=== PATIENT | female | born 1980 | race Caucasian/White ===

== ENCOUNTER 2016-03-07 17:54 | Emergency (ER) | payer OTHER, MEDICARE ==
[~2016-03-07] VITALS: Ht 165.1 cm; Wt 63.0 kg
[~2016-03-07 17:54] MED LIST: CATAPRES 0.1MG0.1 M1 PO; FIORICET W/CODE1 CAP PO; PERCOCET 325 MG1 TA2 PO; REGLAN10 MG PO; TRAMADOL50 MG PO; TYLENOL #31 TAB PO; ZOFRAN4 M1 PO
[2016-03-07 17:57] VITALS: BP 112/62
--- NOTE | 2016-03-07 18:22 | ED SKIN/ALLERGY COMPLAINT ---
History of Present Illness General Chief Complaint: Skin Rash/ Abcess Stated Complaint: BIBA FOR RASH X 2 DAYS Source: patient Exam Limitations: no limitations Vital Signs & Intake/Output Vital Signs & Intake/Output Vital Signs Date Time Temp Pulse Resp B/P Pulse O2 O2 Flow FiO2 Ox Delivery Rate 03/07 1757 98.1 60 20 112/62 97 Room Air Allergies Coded Allergies: NO KNOWN ALLERGIES (08/31/12) Reconcile Medications Apap/Butalbital/Caff/Codeine (Fioricet W/Codeine 325 MG-50 MG-40 MG-30 MG) 1 CAP CAP 1-2 TAB PO Q6P PRN PAIN Clonidine (Catapres 0.1MG Tab (ER)) 0.1 MG TAB 1 TAB PO BID PRN ANXIETY METOCLOPRAMIDE HCL (Reglan) 10 MG TAB 1 TAB PO Q8P PRN NAUSEA Ondansetron (Zofran Odt) 4 MG ODT 1 TAB PO Q6HR PRN NAUSEA OXYCODONE HCL/ACETAMINOPHEN (Percocet 5-325 MG Tablet) 325 MG/5 MG TAB 1-2 TAB PO Q4-6 PRN PRN PAIN TRAMADOL HCL (Tramadol) 50 MG TAB 1 TAB PO Q4-6H PRN PAIN Triamcinolone Acetonide 0.5 % CREAM..G. 1 IZABELA TOP BID RASH apply to affected area(s) X 2 WEEKS Tylenol With Codeine (Tylenol With Codeine #3 Tablet) 1 TAB TAB 1 TAB PO Q6HR PRN PAIN Triage Note: GENERALIZED RASH INCREASING OVER 3-4 DAYS Triage Nurses Notes Reviewed? yes : No Patient currently breastfeeds: No HPI: 35-year-old female with diffuse red rash, concentrated mostly around the trunk but also noted on the upper extremities and proximal lower extremities. She states some areas are slightly itchy. There is no pain. She has had a mild flulike illness recently with malaise and headaches and states that she has been under a lot of stress due to her grandmother being ill with cancer. There is been no treatment thus far. There are no modifying factors. The rash has been going on for 2 days. It is not on her head or neck or face. Past History Travel History Traveled to [place] past 21 day No Medical History Any Pertinent Medical History? see below for history Neurological: migraine, FIBROMYALGIA EENT: NONE Cardiovascular: NONE Respiratory: NONE Gastrointestinal: NONE Hepatic: NONE Renal: NONE Musculoskeletal: disk herniation Psychiatric: anxiety Blood Disorders: NONE Cancer(s): NONE Tetanus Vaccine: 02/20/15 Surgical History Surgical History: Psychosocial History What is your primary language Prydeinig Tobacco Use: Never used ETOH Use: denies use Illicit Drug Use: denies illicit drug use, marijuana (MEDICAL) Family History Hx Contributory? No Review of Systems Review of Systems Constitutional: Reports: see HPI. EENTM: Reports: no symptoms. Respiratory: Reports: no symptoms. Cardiovascular: Reports: no symptoms. GI: Reports: no symptoms. Genitourinary: Reports: no symptoms. Musculoskeletal: Reports: no symptoms. Neurological/Psychological: Reports: no symptoms. Hematologic/Endocrine: Reports: no symptoms. Immunologic/Allergic: Reports: no symptoms. All Other Systems: Reviewed and Negative Physical Exam Physical Exam General Appearance: well developed/nourished, mild distress Head: atraumatic Eyes: Bilateral: PERRL, EOMI. Ears, Nose, Throat: normal pharynx, normal ENT inspection, hearing grossly normal Neck: normal inspection, supple Respiratory: normal breath sounds Cardiovascular: regular rate/rhythm Gastrointestinal: soft, non-tender Back: normal inspection Extremities: normal inspection, normal range of motion, no edema Neurologic/Psych: awake, alert, oriented x 3, normal mood/affect Lymphatic: no anterior cervical natividad Comments: Diffuse papular rash, multiple oval salmon-colored lesions approximately 1 cm to 2 cm in size noted throughout the trunk and mildly to the upper extremities. Examination of the back reveals a much larger, likely herald patch to the mid back region. Rash is nontender. Progress Differential Diagnosis: abscess/cellulitis, allergic reaction, anaphylaxis, angioedema, asthma, contact dermatitis, drug reaction, erythema multiforme, lyme disease, meningitis/sepsis, piyriasis rosea, RMSF, scarlet fever, shingles, syphilis/gonococcemia, toxic shock syndrome, urticaria Plan of Care: Orders Procedure Date/time Status CHLAMYDIA-GC DNA PROBE 03/07 1818 Active Microbiology 03/07 1830 URINE ROUT: GC DNA Probe - RECD 03/07 1830 URINE ROUT: Chlamydia DNA Probe (ANITHA) - RECD Comments: Rash most consistent with pityriasis, discussed with patient that there is no specific treatment for this and it resolves on its own but it may take several weeks. She is given prescription for triamcinolone cream to place on areas where it is itchy. The patient has expressed concerns to me that her boyfriend may be cheating on her, she would like an STD test. She has normal vaginal itching without any discharge or abnormal vaginal bleeding, she has no pelvic pain. We will perform a urine GC chlamydia test. She will be notified of positive test result the next few days Departure Departure Disposition: HOME OR SELF CARE Condition: Stable Clinical Impression Primary Impression: Pityriasis rosea Referrals: PATIENT HAS NO PRIMARY CARE DR (PCP/Family) Additional Instructions: Use the steroid cream only on the areas of rash that are itchy. The rash, last from 6-8 weeks. Return if there is worsening rash or any pain with the rash over the next few days. We will call you if your urine test comes back positive Departure Forms: Customer Survey General Discharge Information Prescriptions: Current Visit Scripts Triamcinolone Acetonide 1 IZABELA TOP BID #30 GM Ref 1 apply to affected area(s) X 2 WEEKS
[2016-03-07] MEDS ORDERED: TRIAMCINOLONE A15 G2 TOP (18:26)
== END 2016-03-07 18:34 ==
LOC: ERH 17:54
DX: L42 Pityriasis rosea (principal)
CPT/HCPCS: 87491; 87591

== ENCOUNTER 2016-06-22 00:32 | Emergency (ER) | payer OTHER, MEDICARE ==
[~2016-06-22] VITALS: Ht 165.1 cm; Wt 65.8 kg
[~2016-06-22 00:32] MED LIST changes: +TRIAMCINOLONE A15 G2 TOP
[2016-06-22 00:48] VITALS: BP 115/63
--- NOTE | 2016-06-22 01:31 | ED GENERAL ADULT ---
History of Present Illness General Chief Complaint: General Adult Stated Complaint: BIBA L EAR PAIN Source: patient Exam Limitations: no limitations Vital Signs & Intake/Output Vital Signs & Intake/Output Vital Signs Date Time Temp Pulse Resp B/P B/P Pulse O2 O2 Flow FiO2 Mean Ox Delivery Rate 06/22 0048 97.2 99 20 115/63 97 Room Air Allergies Coded Allergies: No Known Allergies (06/22/16) Reconcile Medications Amoxicillin/Potassium Clav (Augmentin 875-125 Tablet) 875 MG-125 MG TABLET 1 TAB PO BID ear infection Apap/Butalbital/Caff/Codeine (Fioricet W/Codeine 325 MG-50 MG-40 MG-30 MG) 1 CAP CAP 1-2 TAB PO Q6P PRN PAIN Clonidine (Catapres 0.1MG Tab (ER)) 0.1 MG TAB 1 TAB PO BID PRN ANXIETY Ibuprofen 800 MG TABLET 1 TAB PO TID PRN pain METOCLOPRAMIDE HCL (Reglan) 10 MG TAB 1 TAB PO Q8P PRN NAUSEA Neomycin/Polymyxin B Sulf/Hc (Missdtrc-Bjtihjadf-Ih Ear Susp) 3.5 MG/ML-10,000 UNIT/ML-1 % DROPS.SUSP 4 GTT OT 4 TIMES/DAY ear infection x 7 days Ondansetron (Zofran Odt) 4 MG ODT 1 TAB PO Q6HR PRN NAUSEA Oxycodone HCl/Acetaminophen (Percocet 5-325 MG Tablet) 5 MG-325 MG TABLET 1-2 TAB PO 4XDP PRN PAIN three...[id number] OXYCODONE HCL/ACETAMINOPHEN (Percocet 5-325 MG Tablet) 325 MG/5 MG TAB 1-2 TAB PO Q4-6 PRN PRN PAIN TRAMADOL HCL (Tramadol) 50 MG TAB 1 TAB PO Q4-6H PRN PAIN Triamcinolone Acetonide 0.5 % CREAM..G. 1 IZABELA TOP BID RASH apply to affected area(s) X 2 WEEKS Tylenol With Codeine (Tylenol With Codeine #3 Tablet) 1 TAB TAB 1 TAB PO Q6HR PRN PAIN Triage Note: TRIAGE: BIBA FROM HOME FOR L EAR PAIN X 48 HOURS; ALSO C/O L THONGUE AND THROAT PAIN X 48 HOURS. TAKING OTC MEDS W/O RELIEF. PATIENT AGITATED W/ PRECISION ASSEMBLER BENCH ON ARRIVAL D/T ASKED PATIENT HOW TO PROPERLY SPELL HER NAME. Triage Nurses Notes Reviewed? yes Onset: Gradual Duration: day(s):, continues in ED Timing: single episode today Injury Environment: home Severity: moderate Modifying Factors: Improves With: rest. Associated Symptoms: left ear pain, jaw pain : No Patient currently breastfeeds: No HPI: 35-year-old woman presents with 1 day history of left ear pain. She also notes pain in the left jaw. I feel like my tongue is swollen and I have pain in my left jaw. She notes no fever chills vomiting difficulty swallowing or speaking. She is otherwise well and has no other concerns. Past History Travel History Traveled to [place] past 21 day No Medical History Any Pertinent Medical History? see below for history Neurological: migraine, FIBROMYALGIA EENT: NONE Cardiovascular: NONE Respiratory: NONE Gastrointestinal: NONE Hepatic: NONE Renal: NONE Musculoskeletal: disk herniation Psychiatric: anxiety Blood Disorders: NONE Cancer(s): NONE Tetanus Vaccine: 02/20/15 Surgical History Surgical History: Psychosocial History What is your primary language Cypriot Tobacco Use: Current Daily Use Daily Tobacco Use Amount/Type: => 5 Cigarettes daily ETOH Use: occasional use Illicit Drug Use: marijuana Family History Hx Contributory? No Review of Systems Review of Systems Constitutional: Reports: no symptoms. EENTM: Reports: no symptoms. Respiratory: Reports: no symptoms. Cardiovascular: Reports: no symptoms. GI: Reports: no symptoms. Genitourinary: Reports: no symptoms. Musculoskeletal: Reports: no symptoms. Skin: Reports: no symptoms. Neurological/Psychological: Reports: no symptoms. Hematologic/Endocrine: Reports: no symptoms. Immunologic/Allergic: Reports: no symptoms. All Other Systems: Reviewed and Negative Physical Exam Physical Exam General Appearance: well developed/nourished, mild distress Head: atraumatic, normal appearance, active bleeding Eyes: Bilateral: normal appearance. Ears, Nose, Throat: normal pharynx, left tm w/ erythema, left ear canal with erythema/inflammation, slightly serous discharge. , oropharynx with mild erythema but no exudate or uvular deviation. Neck: normal inspection, supple, full range of motion Respiratory: normal breath sounds, chest non-tender, no respiratory distress, quiet respiration, lungs clear Cardiovascular: regular rate/rhythm Gastrointestinal: normal bowel sounds, soft, non-tender, no organomegaly Back: normal inspection, normal range of motion, vertebral tenderness, evidence of trauma Extremities: normal inspection, normal capillary refill, normal range of motion, no edema Neurologic/Psych: no motor/sensory deficits, awake, alert, oriented x 3 Skin: intact, normal color, warm/dry Core Measures ACS in differential dx? No CVA/TIA Diagnosis: No Severe Sepsis Present: No Septic Shock Present: No Progress Differential Diagnoses I considered the following diagnoses in my evaluation of the patient: Plan of Care: pt given augmentin and pain medications. Initial ED EKG: none Departure Departure Disposition: HOME OR SELF CARE Condition: Stable Clinical Impression Primary Impression: Otitis media Secondary Impressions: Otitis externa Referrals: PATIENT HAS NO PRIMARY CARE DR (PCP/Family) Departure Forms: Customer Survey General Discharge Information Prescriptions: Current Visit Scripts Amoxicillin/Potassium Clav (Augmentin 875-125 Tablet) 1 TAB PO BID #20 TAB Neomycin/Polymyxin B Sulf/Hc (Tgkwvsfr-Txsumcpvk-Bd Ear Susp) 4 GTT OT 4 TIMES/ DAY #60 ML x 7 days Ibuprofen 1 TAB PO TID PRN pain #30 TAB Oxycodone HCl/Acetaminophen (Percocet 5-325 MG Tablet) 1-2 TAB PO 4XDP PRN PAIN #3 TAB three...[id number] Critical Care Note Critical Care Note Critical Care Time: non-applicable
[2016-06-22] MEDS ORDERED: IBUPROFEN800 M1 PO (01:37)
[2016-06-22] MEDS ORDERED: PERCOCET 5-3251 EACH PO ×2 (01:37→01:40)
[2016-06-22] MEDS ORDERED: AUGMENTIN 875-1 EACH PO (01:37)
[2016-06-22] MEDS ORDERED: NEOMYCIN-POLYMY10 M1 OT (01:37)
== END 2016-06-22 01:49 ==
LOC: ERH 00:32
DX: H66.92 Otitis media, unspecified, left ear (principal); H60.92 Unspecified otitis externa, left ear
CPT/HCPCS: J3490

== ENCOUNTER 2017-04-20 01:51 | Emergency (ER) | payer OTHER, MEDICARE ==
[~2017-04-20] VITALS: Ht 162.6 cm; Wt 74.8 kg
[~2017-04-20 01:51] MED LIST changes: +AUGMENTIN 875-1 EACH PO; +CHLORDIAZEPOXID25 M3 PO; +IBUPROFEN800 M1 PO; +NEOMYCIN-POLYMY10 M1 OT; +PERCOCET 5-3251 EACH PO; +ZOFRAN ODT4 M1 SL
[2017-04-20] MEDS ORDERED: ESCITALOPRAM OX20 MG PO (01:55)
--- NOTE | 2017-04-20 01:56 | ED GI/GU/ABDOMINAL COMPLAINT ---
History of Present Illness General Chief Complaint: Female Urogenital Problems Stated Complaint: "? OVARIAN CYST" Source: patient, old records, EMS Exam Limitations: no limitations Vital Signs & Intake/Output Vital Signs & Intake/Output Vital Signs Date Time Temp Pulse Resp B/P B/P Pulse O2 O2 Flow FiO2 Mean Ox Delivery Rate 04/20 0200 96 Room Air 04/20 0153 96.6 95 18 117/66 98 Room Air Allergies Coded Allergies: No Known Allergies (04/20/17) Reconcile Medications Alprazolam 2 MG TABLET 1 TAB PO TIDPRN (Reported) Escitalopram Oxalate 20 MG TABLET 1 TAB PO DAILY (Reported) Hydroxyzine Pamoate 100 MG CAPSULE (Reported) Nortriptyline HCl (Pamelor) 50 MG CAPSULE 1 CAP PO QPM (Reported) Venlafaxine HCl 75 MG TABLET 1 TAB PO BID (Reported) Triage Nurses Notes Reviewed? yes ? n Is pt currently ? No HPI: Patient was diagnosed with a right ovarian cyst by by her web programmer 5 days ago. She has a follow-up appointment on Wednesday. Patient continues to have severe right adnexal pain. The pain waxes and wanes in intensity but never goes away entirely. The pain will fluctuate between a 4/10-10 out of 10. Tonight she was unable to sleep secondary to the pain. Patient is also complaining of mid back pain. Patient is in the process of moving and states that she lifted a heavy box and since then she has had an achy pain in her mid back. The pain increases with movement. There is no weakness or numbness. There is no incontinence of bowel or bladder. She rates that pain also at a 10 out of 10. Patient has taken Motrin without any relief. Past History Travel History Traveled to [place] past 21 day No Medical History Any Pertinent Medical History? 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 No Review of Systems Review of Systems Constitutional: Reports: no symptoms. EENTM: Reports: no symptoms. Respiratory: Reports: no symptoms. Cardiovascular: Reports: no symptoms. GI: Reports: see HPI, abdominal pain. Genitourinary: Reports: no symptoms. Musculoskeletal: Reports: see HPI, back pain. Skin: Reports: no symptoms. Neurological/Psychological: Reports: no symptoms. Hematologic/Endocrine: Reports: no symptoms. Immunologic/Allergic: Reports: no symptoms. All Other Systems: Reviewed and Negative Physical Exam Physical Exam General Appearance: well developed/nourished, alert, awake, severe distress Head: atraumatic, normal appearance Eyes: Bilateral: PERRL, EOMI. Ears, Nose, Throat, Mouth: hearing grossly normal, moist mucous membrane Neck: normal inspection, supple, full range of motion Respiratory: normal breath sounds, chest non-tender, no respiratory distress, lungs clear Cardiovascular: regular rate/rhythm, normal peripheral pulses Gastrointestinal: normal bowel sounds, soft, tenderness (RT ADNEXA) Back: normal inspection, normal range of motion, muscle spasm, no vertebral tenderness, NO CVA TENDERNESS Extremities: normal range of motion Neurologic/Psych: no motor/sensory deficits, awake, alert, oriented x 3, normal mood/affect Skin: intact, normal color, warm/dry Core Measures ACS in differential dx? No Sepsis Present: No Sepsis Focused Exam Completed? No Progress Differential Diagnosis: ovarian cyst, ovarian torsion, UTI/pyelo Plan of Care: Orders Procedure Date/time Status URINALYSIS 04/20 152 Complete HUMAN BETA HCG SCREEN 04/20 152 Complete COMPREHENSIVE METABOLIC PANEL 04/20 152 Complete CBC WITHOUT DIFFERENTIAL 04/20 152 Complete Laboratory Tests 04/20/17 0209: Urine Color STRAW, Urine Clarity CLEAR, Urine pH 7.5, Ur Specific [place] <= 1.005, Urine Protein NEG, Urine Ketones NEG, Urine Nitrite NEG, Urine Bilirubin NEG, Urine Urobilinogen 0.2, Ur Leukocyte Esterase NEG, Ur Microscopic EXAM NOT REQUIRED, Urine Hemoglobin NEG, Urine Glucose NEG 04/20/17 0158: Anion Gap 9, Estimated GFR > 60, BUN/Creatinine Ratio 12.9, Glucose 105 H, Calcium 9.1, Total Bilirubin 0.4, AST 21, ALT 17, Alkaline Phosphatase 71, Total Protein 5.9 L, Albumin 3.6, Globulin 2.3, Albumin/Globulin Ratio 1.6, Total Beta HCG NEGATIVE, CBC w Diff NO MAN DIFF REQ, RBC 4.26, MCV 86.9, MCH 30.1, MCHC 34.6, RDW 12.6, MPV 7.4, Gran % 53.2, Lymphocytes % 37.8, Monocytes % 5.6, Eosinophils % 3.0, Basophils % 0.4, Absolute Granulocytes 3.8, Absolute Lymphocytes 2.7, Absolute Monocytes 0.4, Absolute Eosinophils 0.2, Absolute Basophils 0 Diagnostic Imaging: Viewed by Me: CT Scan. Discussed w/RAD: CT Scan. Radiology Impression: PATIENT: JEANNETTE JOHNSON PRESENT AGE: 36 PATIENT ACCOUNT NO: [id number] : 79 LOCATION: [facility] ORDERING PHYSICIAN: Enrique Cueto MD SERVICE DATE: 04/20/17 EXAM TYPE: CAT - CT ABD & PELVIS W IV CONTRAST EXAMINATION: CT ABDOMEN AND PELVIS WITH CONTRAST CLINICAL INFORMATION: Right lower quadrant pain COMPARISON: None TECHNIQUE: Multidetector volumetric imaging was performed of the abdomen and pelvis following IV administration of 95 mL of Optiray 320 intravenous contrast. Sagittal and coronal reformatted images were obtained on the technologist's workstation. DLP: 277 mGy-cm FINDINGS: LUNG BASES: The visualized lung bases are unremarkable. LIVER, GALLBLADDER, AND BILIARY TREE: The liver is normal in size, shape, and attenuation. No focal hepatic lesion or biliary ductal dilatation is present. The gallbladder is unremarkable with no evidence of radiopaque gallstones, gallbladder wall thickening, or obvious pericholecystic inflammatory changes. PANCREAS: Unremarkable. SPLEEN: Unremarkable. ADRENAL GLANDS: Unremarkable. KIDNEYS AND URETERS: The kidneys are normal in size, shape, and attenuation. No hydronephrosis, hydroureter, or calculi seen. No perinephric stranding. BLADDER: Unremarkable. GASTROINTESTINAL TRACT: The stomach is unremarkable. The small bowel is normal in caliber. No obstruction. There is a moderate to large colonic stool burden. No colonic wall thickening or inflammatory change. Limited visualization of what is likely a normal appendix. No inflammatory changes at the cecum to suggest appendicitis. ABDOMINAL WALL: No significant hernia is appreciated. LYMPH NODES: Normal. VASCULAR: Unremarkable. PELVIC VISCERA: The uterus and adnexa are unremarkable. OSSEOUS STRUCTURES: Endplate osteophyte with sclerosis at the T12 level. IMPRESSION: While visualization of the appendix is limited, there are no findings to suggest acute appendicitis. Moderate to large colonic stool burden. DICTATED BY: Olegario Ndiaye MD DATE/TIME DICTATED:04/20/17307 ROLLER SKATES ASSEMBLER:MELISSA DATE/ TIME TRANSCRIBED:04/20/17307 CONFIDENTIAL, DO NOT COPY WITHOUT APPROPRIATE AUTHORIZATION. <Electronically signed in Other Vendor System> SIGNED BY: Olegario Ndiaye MD 04/20/17313 Initial ED EKG: none Departure Departure Disposition: HOME OR SELF CARE Condition: Stable Clinical Impression Primary Impression: Pelvic pain Secondary Impressions: Back pain Referrals: Patient Has No Primary Care Dr (PCP/Family) Additional Instructions: FOLLOW UP WIT YOUR GYNOCOLOGIST AND YOUR REGULAR DOCTOR\\ RETURN FOR ANY CONCERNS Departure Forms: Customer Survey General Discharge Information Prescriptions: Current Visit Scripts Oxycodone HCl/Acetaminophen (Percocet 5-325 MG Tablet) 1-2 TAB PO Q6P PRN PAIN #20 TAB
[2017-04-20 02:09] LABS: ABSOLUTE BASOPHIL COUNT 0 /CUMM (0.0-0.2); ABSOLUTE EOSINOPHIL COUNT 0.2 /CUMM (0.0-0.7); ABSOLUTE GRANULOCYTE CT 3.8 /CUMM (1.4-6.5); ABSOLUTE LYMPH COUNT 2.7 /CUMM (1.2-3.4); ABSOLUTE MONOCYTE COUNT 0.4 /CUMM (0.10-0.60); BASOPHIL % 0.4 % (0.0-2.0); GRANULOCYTE % 53.2 % (42.2-75.2); MEAN CORPUSCULAR HGB 30.1 PG (27.0-31.0); MEAN CORPUSCULAR HGB CONC 34.6 G/DL (33.0-37.0); MEAN CORPUSCULAR VOLUME 86.9 FL (81.0-99.0); MEAN PLATELET VOLUME 7.4 FL (7.4-10.4); PLATELET COUNT 286 /CUMM (130-400); RBC DISTRIBUTION WIDTH 12.6 % (11.5-14.5); RED BLOOD CELL CT 4.26 /CUMM (4.20-5.40); WHITE BLOOD CELL COUNT 7.2 /CUMM (4.8-10.8)
[2017-04-20] MEDS ORDERED: HYDROXYZINE PA100 M1 (02:19)
[2017-04-20] MEDS ORDERED: VENLAFAXINE HCL75 MG PO (02:19)
[2017-04-20] MEDS ORDERED: PAMELOR50 M1 PO (02:20)
[2017-04-20] MEDS ORDERED: ALPRAZOLAM2 M2 PO (02:20)
--- NOTE | 2017-04-20 03:14 | CT SCAN REPORT ---
EXAMINATION: CT ABDOMEN AND PELVIS WITH CONTRAST CLINICAL INFORMATION: Right lower quadrant pain COMPARISON: None TECHNIQUE: Multidetector volumetric imaging was performed of the abdomen and pelvis following IV administration of 95 mL of Optiray 320 intravenous contrast. Sagittal and coronal reformatted images were obtained on the technologist's workstation. DLP: 277 mGy-cm FINDINGS: LUNG BASES: The visualized lung bases are unremarkable. LIVER, GALLBLADDER, AND BILIARY TREE: The liver is normal in size, shape, and attenuation. No focal hepatic lesion or biliary ductal dilatation is present. The gallbladder is unremarkable with no evidence of radiopaque gallstones, gallbladder wall thickening, or obvious pericholecystic inflammatory changes. PANCREAS: Unremarkable. SPLEEN: Unremarkable. ADRENAL GLANDS: Unremarkable. KIDNEYS AND URETERS: The kidneys are normal in size, shape, and attenuation. No hydronephrosis, hydroureter, or calculi seen. No perinephric stranding. BLADDER: Unremarkable. GASTROINTESTINAL TRACT: The stomach is unremarkable. The small bowel is normal in caliber. No obstruction. There is a moderate to large colonic stool burden. No colonic wall thickening or inflammatory change. Limited visualization of what is likely a normal appendix. No inflammatory changes at the cecum to suggest appendicitis. ABDOMINAL WALL: No significant hernia is appreciated. LYMPH NODES: Normal. VASCULAR: Unremarkable. PELVIC VISCERA: The uterus and adnexa are unremarkable. OSSEOUS STRUCTURES: Endplate osteophyte with sclerosis at the T12 level. IMPRESSION: While visualization of the appendix is limited, there are no findings to suggest acute appendicitis. Moderate to large colonic stool burden.
[2017-04-20] MEDS ORDERED: PERCOCET 5-3251 EACH PO (03:25)
[2017-04-20 07:20] VITALS: BP 110/77
== END 2017-04-20 07:37 ==
LOC: ERH 01:51
PROVIDERS: Emergency Medicine
DX: R10.2 Pelvic and perineal pain (principal); M54.9 Dorsalgia, unspecified
CPT/HCPCS: 74177; 81003; 96374; 96375; J1885

== ENCOUNTER 2017-06-11 02:50 | Emergency (ER) | payer OTHER, MEDICARE ==
[~2017-06-11] VITALS: Ht 165.1 cm; Wt 63.5 kg
[~2017-06-11 02:50] MED LIST changes: +ALPRAZOLAM2 M2 PO; +ESCITALOPRAM OX20 MG PO; +HYDROXYZINE PA100 M1; +PAMELOR50 M1 PO; +VENLAFAXINE HCL75 MG PO
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
[2017-06-11] MEDS ORDERED: BACTRIM DS TAB1 EACH PO (03:02)
[2017-06-11] MEDS ORDERED: IBUPROFEN800 M1 PO (03:02)
[2017-06-11 03:07] VITALS: BP 137/76
[2017-06-11] MEDS ORDERED: ZOFRAN ODT4 M1 SL (03:08)
== END 2017-06-11 03:11 ==
LOC: ERH 02:50
DX: S29.9XXA Unspecified injury of thorax, initial encounter (principal); L03.113 Cellulitis of right upper limb; M79.631 Pain in right forearm; V49.60XA Unspecified car occupant injured in collision with unspecified motor vehicles in traffic accident, initial encounter